=== PATIENT | male | born 1960 | race Caucasian/White ===

== ENCOUNTER 2017-11-13 05:36 | Inpatient (IN) | END 2017-11-20 12:00 | disposition home or self-care (01) | DRG 25 ==

== ENCOUNTER 2017-11-22 10:58 | Emergency (ER) | END 2017-11-22 11:45 | disposition home or self-care (01) ==

== ENCOUNTER 2017-12-21 09:47 | Emergency (ER) | END 2017-12-21 11:42 | disposition home or self-care (01) ==